=== PATIENT | female | born 1990 | race Two or more races ===

== ENCOUNTER 2016-07-03 03:48 | Emergency (ER) | payer MEDICAID ==
[~2016-07-03] VITALS: Ht 162.6 cm; Wt 65.3 kg
[~2016-07-03 03:48] MED LIST: CEPH-37 PO; PREN-96 PO
[2016-07-03 04:47] LABS: Basophils # (auto) 0 uL; Basophils % (auto) 0.3 % (0.0-2.0); Eosinophils # (auto) 0.1 uL; Hematocrit 40.6 % (36.0-46.0); Hemoglobin 13.4 g/dL (12.2-16.2); Lymphocytes % (auto) 20.3 % (10.0-50.0); Mean Corpuscular Hemoglobin 28.9 pg (28.0-32.0); Mean Corpuscular Volume 87.6 fL (80.0-100.0); Mean Platelet Volume 8.3 fL (7.4-10.4); Monocytes # (auto) 0.7 uL; Monocytes % (auto) 6.8 % (0.0-12.0); Neutrophils # (auto) 7.2 uL; Neutrophils % (auto) 71.6 % (37.0-80.0); Platelet Count (auto) 264 10^3/uL (140-450); Red Cell Distribution Width 12.9 % (11.6-16.0)
[2016-07-03 05:12] LABS: Albumin 4.2 g/dL (3.4-5.0); Calcium 8.6 mg/dL (8.5-10.1)
[2016-07-03 05:15] LABS: BUN/Creatinine Ratio 19.4
[2016-07-03 05:17] LABS: Bilirubin, Total 0.2 mg/dL (0.2-1.0); Total Protein 7.8 g/dL (6.4-8.2)
[2016-07-03 07:45] VITALS: BP 108/75
== END 2016-07-03 08:52 | disposition home or self-care (01) ==
LOC: ER 03:53
DX: N39.0 Urinary tract infection, site not specified (principal); H92.01 Otalgia, right ear
CPT/HCPCS: 36415; 80053; 85025

== ENCOUNTER 2016-09-24 13:06 | Emergency (ER) | payer MEDICAID ==
[2016-09-24 13:11] VITALS: BP 122/68
[2016-09-24 14:09] LABS: Basophils # (auto) 0 uL; Basophils % (auto) 0.5 % (0.0-2.0); Eosinophils # (auto) 0.1 uL; Eosinophils % (auto) 0.9 % (0.0-7.0); Hematocrit 40.2 % (36.0-46.0); Hemoglobin 13.2 g/dL (12.2-16.2); Lymphocytes # (auto) 1.9 uL; Mean Corpuscular Hemoglobin 28.4 pg (28.0-32.0); Mean Corpuscular Hgb Conc. 32.9 g/dL (32.0-36.0); Mean Corpuscular Volume 86.3 fL (80.0-100.0); Mean Platelet Volume 8.4 fL (7.4-10.4); Monocytes # (auto) 0.4 uL; Monocytes % (auto) 5.8 % (0.0-12.0); Neutrophils # (auto) 4.4 uL; Neutrophils % (auto) 64.8 % (37.0-80.0); Platelet Count (auto) 243 10^3/uL (140-450); Red Cell Distribution Width 13.3 % (11.6-16.0); White Blood Cell 6.8 10^3/uL (4.4-10.8)
[2016-09-24 14:35] LABS: BUN/Creatinine Ratio 14.8; Bilirubin, Total 0.4 mg/dL (0.2-1.0); Calcium 8.7 mg/dL (8.5-10.1); Total Protein 7.2 g/dL (6.4-8.2)
== END 2016-09-24 15:38 | disposition left against medical advice (07) ==
LOC: ER 13:06
DX: R10.30 Lower abdominal pain, unspecified (principal); Z53.21 Procedure and treatment not carried out due to patient leaving prior to being seen by health care provider
CPT/HCPCS: 36415; 74000; 80053; 84702; 85025

== ENCOUNTER 2016-12-08 00:49 | Emergency (ER) | payer MEDICAID ==
[~2016-12-08] VITALS: Ht 154.9 cm; Wt 67.6 kg
[2016-12-08 01:06] VITALS: BP 126/69
[2016-12-08] MEDS ORDERED: diphenhdrAMINE HCL 50 MG/1 ML VL IM ONE (03:15)
[2016-12-08] MEDS ORDERED: methylPREDNISolone SOD SUCC 125 MG/2 ML VL IM ONE (03:15)
== END 2016-12-08 03:37 | disposition home or self-care (01) ==
LOC: ER 00:49
DX: T78.40XA Allergy, unspecified, initial encounter (principal)
CPT/HCPCS: 81025

== ENCOUNTER 2017-04-22 05:38 | Emergency (ER) | payer MEDICAID ==
[~2017-04-22] VITALS: Ht 154.9 cm; Wt 65.8 kg
[2017-04-22 06:36] LABS: Urine Bilirubin Negative (Negative); Urine Blood 2+ /uL (Negative); Urine Ca Oxalate Crystal FEW (None Seen); Urine Color Yellow (Yellow); Urine Glucose Normal (Normal); Urine Ketone Negative (Negative); Urine Mucus FEW (None Seen); Urine Nitrite Negative (Negative); Urine RBC 6 /hpf (0 - 4); Urine Squamous Epithelial Cell FEW /hpf (<5); Urine Urobilinogen Normal (Negative); Urine pH 5.5 (5.0-8.0)
[2017-04-22 09:44] LABS: Basophils # (auto) 0 uL; Basophils % (auto) 0.7 % (0.0-2.0); Eosinophils # (auto) 0.2 uL; Eosinophils % (auto) 2.4 % (0.0-7.0); Hematocrit 41.9 % (36.0-46.0); Hemoglobin 13.9 g/dL (12.2-16.2); Lymphocytes # (auto) 1.8 uL; Lymphocytes % (auto) 28.3 % (10.0-50.0); Mean Corpuscular Hemoglobin 29.4 pg (28.0-32.0); Mean Corpuscular Hgb Conc. 33.3 g/dL (32.0-36.0); Mean Corpuscular Volume 88.4 fL (80.0-100.0); Mean Platelet Volume 8.3 fL (6.9-10.8); Monocytes # (auto) 0.5 uL; Monocytes % (auto) 7.3 % (0.0-12.0); Neutrophils # (auto) 3.9 uL; Neutrophils % (auto) 61.3 % (37.0-80.0); Platelet Count (auto) 209 10^3/uL (140-450); Red Cell Distribution Width 13.2 % (11.8-14.3); White Blood Cell 6.4 10^3/uL (4.4-10.8)
[2017-04-22 10:09] LABS: BUN/Creatinine Ratio 17.5; Calcium 8.9 mg/dL (8.5-10.1); Potassium 3.7 mmol/L (3.5-5.1)
[2017-04-22 10:21] LABS: INR 0.94 (0.9-1.15); Prothrombin Time 10.2 sec (9.37-12.3)
[2017-04-22] MEDS ORDERED: cefTRIAXone 1GM/50ML D5W 50 ML IV ONE (11:00)
[2017-04-22 11:16] VITALS: BP 117/66
== END 2017-04-22 11:23 | disposition home or self-care (01) ==
LOC: ER 05:38
DX: N39.0 Urinary tract infection, site not specified (principal)
CPT/HCPCS: 36415; 80048; 81001; 81025; 84702; 85025; 85610; 85730

== ENCOUNTER 2017-09-26 08:28 | Emergency (ER) | payer MEDICAID ==
[~2017-09-26] VITALS: Ht 154.9 cm; Wt 65.8 kg
[2017-09-26 09:47] LABS: Basophils # (auto) 0 uL; Basophils % (auto) 0.4 % (0.0-2.0); Eosinophils # (auto) 0 uL; Eosinophils % (auto) 0.5 % (0.0-7.0); Hematocrit 39.9 % (36.0-46.0); Hemoglobin 13.2 g/dL (12.2-16.2); Lymphocytes # (auto) 1.6 uL; Mean Corpuscular Hemoglobin 29.4 pg (28.0-32.0); Mean Corpuscular Volume 89.1 fL (80.0-100.0); Monocytes # (auto) 0.5 uL; Monocytes % (auto) 8.1 % (0.0-12.0); Neutrophils # (auto) 4.3 uL; Platelet Count (auto) 223 10^3/uL (140-450); Red Blood Cells 4.48 10^6/uL (4.0-5.20); Red Cell Distribution Width 13.3 % (11.8-14.3); White Blood Cell 6.5 10^3/uL (4.4-10.8)
[2017-09-26 09:57] LABS: Urine Bacteria FEW /hpf (None Seen); Urine Blood 1+ /uL (Negative); Urine Mucus FEW (None Seen); Urine Specific Gravity 1.028 (1.001-1.035); Urine WBC 2 /hpf (0 - 5)
[2017-09-26 10:10] LABS: Albumin 3.9 g/dL (3.4-5.0); BUN/Creatinine Ratio 15.9; Bilirubin, Total 0.5 mg/dL (0.2-1.0); Calcium 8.2 mg/dL (8.5-10.1); Potassium 3.8 mmol/L (3.5-5.1); Total Protein 7.2 g/dL (6.4-8.2)
[2017-09-26 10:57] VITALS: BP 105/50
[2017-09-26] MEDS ORDERED: NITROFURANTOIN (MONO) 100 mg CAP PO ONE (11:45)
[2017-09-26] MEDS ORDERED: HYDROcodone-ACET 10/325MG TAB PO ONE (11:45)
== END 2017-09-26 13:08 | disposition home or self-care (01) ==
LOC: ER 08:33
DX: N39.0 Urinary tract infection, site not specified (principal); N83.209 Unspecified ovarian cyst, unspecified side
CPT/HCPCS: 36415; 80053; 81001; 81025; 85025

== ENCOUNTER 2018-01-26 16:14 | Emergency (ER) | payer MEDICAID ==
[~2018-01-26] VITALS: Ht 154.9 cm; Wt 68.0 kg
[2018-01-26 16:57] LABS: Urine Bacteria NONE SEEN /hpf (None Seen); Urine Blood 1+ /uL (Negative); Urine Specific Gravity 1.021 (1.001-1.035); Urine WBC 13 /hpf (0 - 5)
[2018-01-26 17:19] LABS: Basophils # (auto) 0.1 uL; Basophils % (auto) 0.8 % (0.0-2.0); Eosinophils # (auto) 0.1 uL; Eosinophils % (auto) 0.8 % (0.0-7.0); Hematocrit 38.5 % (36.0-46.0); Hemoglobin 13.4 g/dL (12.2-16.2); Lymphocytes # (auto) 1.7 uL; Lymphocytes % (auto) 20.7 % (10.0-50.0); Mean Corpuscular Hemoglobin 30.6 pg (28.0-32.0); Mean Corpuscular Hgb Conc. 34.9 g/dL (32.0-36.0); Mean Corpuscular Volume 87.7 fL (80.0-100.0); Monocytes # (auto) 0.6 uL; Monocytes % (auto) 7.8 % (0.0-12.0); Neutrophils # (auto) 5.6 uL; Neutrophils % (auto) 69.9 % (37.0-80.0); Nucleated Red Blood Cells % 0.1 %; Platelet Count (auto) 212 10^3/uL (140-450); Red Blood Cells 4.38 10^6/uL (4.0-5.20)
[2018-01-26 17:31] LABS: Calcium 8.7 mg/dL (8.5-10.1); Potassium 3.7 mmol/L (3.5-5.1)
[2018-01-26 17:33] LABS: BUN/Creatinine Ratio 14.9
[2018-01-26 17:36] LABS: Bilirubin, Total 0.4 mg/dL (0.2-1.0); Total Protein 7.3 g/dL (6.4-8.2)
[2018-01-26 18:50] VITALS: BP 120/48
== END 2018-01-26 18:52 | disposition home or self-care (01) ==
LOC: ER 16:14
DX: O23.41 Unspecified infection of urinary tract in pregnancy, first trimester (principal); Z3A.01 Less than 8 weeks gestation of pregnancy
CPT/HCPCS: 36415; 80053; 81001; 84702; 85025

== ENCOUNTER 2018-01-29 15:45 | Emergency (ER) | payer MEDICAID ==
[~2018-01-29] VITALS: Ht 154.9 cm; Wt 66.2 kg
[2018-01-29 16:07] VITALS: BP 118/64
== END 2018-01-29 17:33 | disposition home or self-care (01) ==
LOC: ER 15:49
DX: O26.891 Other specified pregnancy related conditions, first trimester (principal); R10.2 Pelvic and perineal pain; Z3A.01 Less than 8 weeks gestation of pregnancy
CPT/HCPCS: 36415; 84702

== ENCOUNTER 2018-02-07 21:45 | Emergency (ER) | payer MEDICAID ==
[~2018-02-07] VITALS: Ht 154.9 cm; Wt 66.7 kg
[2018-02-07 22:32] LABS: Basophils # (auto) 0.1 uL; Basophils % (auto) 0.7 % (0.0-2.0); Eosinophils # (auto) 0.1 uL; Eosinophils % (auto) 1.3 % (0.0-7.0); Hematocrit 38.4 % (36.0-46.0); Lymphocytes # (auto) 2.2 uL; Lymphocytes % (auto) 25.2 % (10.0-50.0); Mean Corpuscular Hgb Conc. 33.9 g/dL (32.0-36.0); Mean Corpuscular Volume 88.7 fL (80.0-100.0); Monocytes # (auto) 0.6 uL; Monocytes % (auto) 6.4 % (0.0-12.0); Neutrophils # (auto) 5.8 uL; Neutrophils % (auto) 66.4 % (37.0-80.0); Platelet Count (auto) 214 10^3/uL (140-450); Red Blood Cells 4.33 10^6/uL (4.0-5.20); Red Cell Distribution Width 13.8 % (11.8-14.3); White Blood Cell 8.7 10^3/uL (4.4-10.8)
[2018-02-07 22:36] LABS: Urine Bacteria FEW /hpf (None Seen); Urine Blood TRACE /uL (Negative); Urine Specific Gravity 1.009 (1.001-1.035); Urine WBC <1 /hpf (0 - 5)
[2018-02-07 22:44] LABS: Albumin 3.8 g/dL (3.4-5.0); BUN/Creatinine Ratio 13.4; Calcium 8.6 mg/dL (8.5-10.1); Potassium 3.6 mmol/L (3.5-5.1)
[2018-02-07 22:47] LABS: Bilirubin, Total 0.3 mg/dL (0.2-1.0); Total Protein 7.1 g/dL (6.4-8.2)
[2018-02-07 22:53] LABS: INR 0.95 (0.9-1.15); Partial Thromboplastin Time 27.7 sec (23.78-33.04); Prothrombin Time 10.2 sec (9.27-12.13)
[2018-02-08] MEDS ORDERED: cefTRIAXone 1GM/10ml IVPUSH 10 ML IV ONE (04:00)
[2018-02-08] MEDS ORDERED: AZITHROMYCIN 500MG/ 250ML 250 ML IV ONE (04:00)
[2018-02-08 05:01] VITALS: BP 108/67
== END 2018-02-08 06:14 | disposition home or self-care (01) ==
LOC: ER 21:45
DX: O20.9 Hemorrhage in early pregnancy, unspecified (principal); Z3A.01 Less than 8 weeks gestation of pregnancy
CPT/HCPCS: 36415; 76801; 76817; 80053; 81001; 84702; 85025; 85610; 85730

== ENCOUNTER 2018-10-06 17:40 | Observation (INO) | payer MEDICAID ==
[~2018-10-06] VITALS: Ht 154.9 cm; Wt 79.4 kg
[2018-10-06] MEDS ORDERED: PENICILLIN G POT 5MIL/D5 50ML 50 ML IV ONE (23:53)
== END 2018-10-06 18:53 | disposition home or self-care (01) | DRG 566 ==
LOC: LDRP 17:40
PROVIDERS: ADMIT Specialist; ATTEND Specialist
DX: O26.893 Other specified pregnancy related conditions, third trimester (principal); R10.9 Unspecified abdominal pain; Z3A.39 39 weeks gestation of pregnancy
CPT/HCPCS: 59025; 81002; G0378; J2540

== ENCOUNTER 2018-10-08 02:16 | Inpatient (IN) | payer MEDICAID | END 2018-10-09 14:40 | disposition home or self-care (01) | LOC: LDRP 02:16 | DX: O80 Encounter for full-term uncomplicated delivery (principal); Z3A.39 39 weeks gestation of pregnancy ==

== ENCOUNTER 2018-10-10 08:11 | Emergency (ER) | payer MEDICAID ==
[~2018-10-10] VITALS: Ht 154.9 cm; Wt 75.4 kg
[2018-10-10 08:15] VITALS: BP 108/87
[2018-10-10] MEDS ORDERED: ACETAMINOPHEN 325 MG TAB PO ONE (13:15)
== END 2018-10-10 15:15 | disposition home or self-care (01) ==
LOC: ER 08:11
DX: S00.83XA Contusion of other part of head, initial encounter (principal); M54.5 Low back pain; M62.830 Muscle spasm of back; V89.2XXA Person injured in unspecified motor-vehicle accident, traffic, initial encounter; Y93.89 Activity, other specified; Y92.89 Other specified places as the place of occurrence of the external cause; Y99.8 Other external cause status
CPT/HCPCS: 70450; 72125

== ENCOUNTER 2019-02-28 12:36 | Emergency (ER) | payer MEDICAID ==
[~2019-02-28] VITALS: Ht 154.9 cm; Wt 62.6 kg
[2019-02-28] MEDS ORDERED: SODIUM CHLORIDE 0.9% 1,000 ML IV ONE (12:47)
[2019-02-28 13:14] LABS: Basophils # (auto) 0 uL; Basophils % (auto) 0.9 % (0.0-2.0); Eosinophils # (auto) 0.1 uL; Eosinophils % (auto) 1.6 % (0.0-7.0); Hematocrit 40.9 % (36.0-46.0); Hemoglobin 13.7 g/dL (12.2-16.2); Lymphocytes # (auto) 1.5 uL; Lymphocytes % (auto) 29.5 % (10.0-50.0); Mean Corpuscular Hemoglobin 29.9 pg (28.0-32.0); Mean Corpuscular Hgb Conc. 33.5 g/dL (32.0-36.0); Mean Corpuscular Volume 89.2 fL (80.0-100.0); Monocytes # (auto) 0.3 uL; Monocytes % (auto) 6.6 % (0.0-12.0); Neutrophils # (auto) 3.1 uL; Neutrophils % (auto) 61.4 % (37.0-80.0); Nucleated Red Blood Cells % 0.1 %; Platelet Count (auto) 200 10^3/uL (140-450); Red Blood Cells 4.58 10^6/uL (4.0-5.20); Red Cell Distribution Width 12.9 % (11.8-14.3); White Blood Cell 5.1 10^3/uL (4.4-10.8)
[2019-02-28 13:25] LABS: INR 0.97 (0.9-1.15); Partial Thromboplastin Time 27.2 sec (23.64-32.05)
[2019-02-28 13:32] LABS: Anion Gap 6 (5-15); Calcium 8.7 mg/dL (8.5-10.1); Carbon Dioxide 25 mmol/L (21-32); Chloride 111 mmol/L (98-107); Lipase 107 U/L (73-393); Potassium 3.9 mmol/L (3.5-5.1); Sodium 142 mmol/L (136-145)
[2019-02-28 13:40] LABS: Alanine Aminotransferase 27 U/L (13-56); Alkaline Phosphatase 74 U/L (45-117); Aspartate Aminotransferase 40 U/L (15-37); BUN/Creatinine Ratio 14.7; Bilirubin, Total 0.7 mg/dL (0.2-1.0); Blood Urea Nitrogen 10 mg/dL (7-18); GFR African American 135 mL/min; GFR Non-African American 111 mL/min; Glucose 102 mg/dL (74-106); Total Protein 7.2 g/dL (6.4-8.2)
[2019-02-28] MEDS ORDERED: ACETAMINOPHEN 500 MG TAB PO ONE (15:15)
[2019-02-28] MEDS ORDERED: MORPHINE SULFATE 4 MG/ML SYR/VIAL IV ONE (16:00)
[2019-02-28] MEDS ORDERED: ONDANSETRON HCL 4 MG/2 ML VIAL IV ONE (16:00)
[2019-02-28 17:36] VITALS: BP 110/64
== END 2019-02-28 18:18 | disposition home or self-care (01) ==
LOC: EDBD 12:36 → ER 12:36
DX: K80.20 Calculus of gallbladder without cholecystitis without obstruction (principal)
CPT/HCPCS: 36415; 76705; 80053; 83690; 84484; 85025; 85610; 85730; 96374; 96375; 99284; J2270; J2405; J7030

== ENCOUNTER 2019-03-01 13:10 | Inpatient (IN) | payer MEDICAID ==
[~2019-03-01] VITALS: Ht 154.9 cm; Wt 63.5 kg
[2019-03-01] MEDS ORDERED: SODIUM CHLORIDE 0.9% 500 ML IVB ONE (16:00)
[2019-03-01] MEDS ORDERED: MORPHINE SULFATE 4 MG/ML SYR/VIAL IV ONE (16:00)
[2019-03-01] MEDS ORDERED: ONDANSETRON HCL 4 MG/2 ML VIAL IV ONE (16:00)
[2019-03-01 16:19] LABS: Basophils # (auto) 0.1 uL; Basophils % (auto) 1.1 % (0.0-2.0); Eosinophils # (auto) 0.1 uL; Hematocrit 40.9 % (36.0-46.0); Hemoglobin 13.9 g/dL (12.2-16.2); Lymphocytes # (auto) 1.4 uL; Lymphocytes % (auto) 25.9 % (10.0-50.0); Mean Corpuscular Hemoglobin 30.5 pg (28.0-32.0); Mean Corpuscular Hgb Conc. 33.9 g/dL (32.0-36.0); Mean Corpuscular Volume 89.9 fL (80.0-100.0); Monocytes # (auto) 0.4 uL; Monocytes % (auto) 7.8 % (0.0-12.0); Neutrophils # (auto) 3.4 uL; Neutrophils % (auto) 64.2 % (37.0-80.0); Nucleated Red Blood Cells % 0.1 %; Platelet Count (auto) 198 10^3/uL (140-450); Red Blood Cells 4.55 10^6/uL (4.0-5.20); Red Cell Distribution Width 13.2 % (11.8-14.3); White Blood Cell 5.4 10^3/uL (4.4-10.8)
[2019-03-01 16:33] LABS: Albumin 4.4 g/dL (3.4-5.0); Calcium 9.6 mg/dL (8.5-10.1); Potassium 3.8 mmol/L (3.5-5.1)
[2019-03-01 16:36] LABS: Total Protein 7.6 g/dL (6.4-8.2)
[2019-03-01] MEDS ORDERED: MORPHINE SULF INJ 2 MG/ML SYRINGE 1ML IV PRN (17:00)
[2019-03-01] MEDS: SOD CHL 0.45% WITH 20MEQ KCL 1,000 ML IV SCH (19:06)
[2019-03-01] MEDS: LEVOFLOXACIN 500MG 100 ML IV SCH (19:06)
--- NOTE | 2019-03-01 20:15 | NUR ---
open note assumed care of pt, upon entering room pt sitting up awake, alert and oriented x4. pt has family including at bedside. pt on room air no distress noted or expressed. pt and family updated on plan of care. all questions answered. pt bed locked, low and 2x rails up. call light in reach, this nurse encouraged pt to call as needed. will round q1hr and prn.
[2019-03-01 22:00] VITALS: BP 111/58
[2019-03-01] MEDS: metroNIDAZOLE 500MG/100ML 100 ML IV SCH (22:32)
[2019-03-02] MEDS: ONDANSETRON HCL 4 MG/2 ML VIAL IV PRN (01:00)
--- NOTE | 2019-03-02 01:00 | NUR ---
pt co nausea and tingling in extremities. upon assessment pt was diaphoretic, skin was clammy. pt was alert and oriented x4 throughout. pt vitals taken, and stable. BG checked and revealed 64. pt given (2) apple juice, and (1) jello.. pt was also given PRN zofran per MD and order and in accordance with MAR. pt reported relief after interventions performed. pt revealed that "all i had to eat today was a smoothie in the morning". BG recheck after 30min showed BG of 112. pt stable at this time. call light in reach, bed linens changed. will round on pt q1hr prn.
[2019-03-02] MEDS: SOD CHL 0.45% WITH 20MEQ KCL 1,000 ML IV SCH (03:08)
[2019-03-02] MEDS ORDERED: PROMETHAZINE HCL 25 MG/ML 1ML IV ONE (03:15)
[2019-03-02 05:48] VITALS: BP 104/56
[2019-03-02 06:15] LABS: Basophils # (auto) 0 uL; Basophils % (auto) 0.4 % (0.0-2.0); Eosinophils # (auto) 0 uL; Eosinophils % (auto) 0.2 % (0.0-7.0); Hematocrit 40.8 % (36.0-46.0); Hemoglobin 13.6 g/dL (12.2-16.2); Lymphocytes # (auto) 0.6 uL; Lymphocytes % (auto) 8.8 % (10.0-50.0); Mean Corpuscular Hemoglobin 30.1 pg (28.0-32.0); Mean Corpuscular Hgb Conc. 33.3 g/dL (32.0-36.0); Mean Corpuscular Volume 90.6 fL (80.0-100.0); Monocytes # (auto) 0.2 uL; Monocytes % (auto) 3.1 % (0.0-12.0); Neutrophils % (auto) 87.5 % (37.0-80.0); Platelet Count (auto) 185 10^3/uL (140-450); Red Cell Distribution Width 12.8 % (11.8-14.3); White Blood Cell 6.9 10^3/uL (4.4-10.8)
[2019-03-02] MEDS: metroNIDAZOLE 500MG/100ML 100 ML IV SCH ×3 (06:30→21:52)
[2019-03-02 06:39] LABS: INR 1.01 (0.9-1.15); Partial Thromboplastin Time 25.6 sec (23.64-32.05)
[2019-03-02 06:42] LABS: Potassium 4.1 mmol/L (3.5-5.1)
[2019-03-02 06:47] LABS: BUN/Creatinine Ratio 13.9; Calcium 8.6 mg/dL (8.5-10.1)
[2019-03-02 06:57] LABS: Bilirubin, Total 1.2 mg/dL (0.2-1.0)
--- NOTE | 2019-03-02 07:45 | NUR ---
Opening Shift Note Assumed care of patient, awake, alert and oriented x4 . No S/S of distress/SOB or pain. Patient denies nausea. Instructed on POC and to call for assist PRN. Bed at lowest locked position, side rails up x2 and call light within reach. will continue to monitor for changes Q1hr and PRN.
[2019-03-02 08:00] VITALS: BP 99/44
[2019-03-02 09:00] VITALS: BP 99/44
[2019-03-02] MEDS: LEVOFLOXACIN 500MG 100 ML IV SCH (10:19)
--- NOTE | 2019-03-02 11:04 | NUR ---
Provided patient with Breast pump from Labor and delivery.
[2019-03-02 13:00] VITALS: BP 110/66
--- NOTE | 2019-03-02 13:53 | NUR ---
Spoke to Xochitl in the OR department, notified her that patient has agreed to have the surgery. Xochitl will notify Dr. Loyda MD is currently in a procedure.
[2019-03-02 17:00] VITALS: BP 105/65
[2019-03-02] MEDS: SODIUM CHLORIDE 0.9% 1,000 ML IV SCH ×2 (17:50→18:15)
--- NOTE | 2019-03-02 19:08 | NUR ---
Closing Note Report given to Julio RN, patient is comfortably resting in bed. Bed at lowest locked position and call light within reach. No s/s of distress/SOB noted/stated.
[2019-03-02 22:00] VITALS: BP 107/67
--- NOTE | 2019-03-02 23:30 | NUR ---
Patient began to feel shaky, cool and diaphoretic along with some cramping and numbness. Checked the patients blood glucose with results of 48 and 45. Paged the hospitalist and promptly received a call back and received and order to change the fluids from NS to D5NS. Rechecked Blood glucose with result of 92.
[2019-03-03] MEDS: ONDANSETRON HCL 4 MG/2 ML VIAL IV PRN ×2 (00:05→10:08)
[2019-03-03] MEDS: D5W/SOD CHLO 0.9% 1,000 ML IV SCH ×2 (01:26→13:30)
--- NOTE | 2019-03-03 01:57 | NUR ---
Hospitalist gold Pt is still very nauseous from hypoglycemic episode. Zofran was administered however the patient stated that it gave very little relief. She received Phenergan 12.5MG IV X1 the previous night and stated it worked a lot better and would prefer that.
[2019-03-03] MEDS ORDERED: PROMETHAZINE HCL 25 MG/ML 1ML IV ONE (03:00)
[2019-03-03 05:00] VITALS: BP 106/63
[2019-03-03] MEDS: metroNIDAZOLE 500MG/100ML 100 ML IV SCH ×3 (05:15→21:16)
[2019-03-03 06:46] LABS: Potassium 3.9 mmol/L (3.5-5.1)
[2019-03-03 06:56] LABS: Basophils # (auto) 0 uL; Basophils % (auto) 0.7 % (0.0-2.0); Eosinophils # (auto) 0 uL; Eosinophils % (auto) 0.6 % (0.0-7.0); Hematocrit 39.5 % (36.0-46.0); Hemoglobin 13.4 g/dL (12.2-16.2); Lymphocytes # (auto) 1.1 uL; Mean Corpuscular Hemoglobin 30.4 pg (28.0-32.0); Mean Corpuscular Hgb Conc. 33.8 g/dL (32.0-36.0); Mean Corpuscular Volume 89.8 fL (80.0-100.0); Monocytes # (auto) 0.3 uL; Monocytes % (auto) 6.7 % (0.0-12.0); Neutrophils # (auto) 3.4 uL; Nucleated Red Blood Cells % 0.1 %; Platelet Count (auto) 192 10^3/uL (140-450); Red Cell Distribution Width 12.7 % (11.8-14.3)
[2019-03-03 06:59] LABS: Albumin 3.6 g/dL (3.4-5.0); BUN/Creatinine Ratio 13.5; Bilirubin, Total 0.9 mg/dL (0.2-1.0); Calcium 8.2 mg/dL (8.5-10.1); Magnesium 2.1 mg/dL (1.6-2.6); Total Protein 6.6 g/dL (6.4-8.2)
[2019-03-03] MEDS ORDERED: DOXAPRAM HCL 20 MG/ML 20ML VIAL INJ IV ONE (07:04)
[2019-03-03] MEDS ORDERED: ceFAZolin 1GM/50ML 50 ML IV ONE (07:04)
[2019-03-03] MEDS ORDERED: SUCCINYLCHOLINE CHLORIDE 20 MG/ML 10ML VIAL IV ONE (07:05)
[2019-03-03 07:06] LABS: Urine Bacteria FEW /hpf (None Seen); Urine Blood Negative /uL (Negative); Urine Mucus FEW (None Seen); Urine Specific Gravity 1.024 (1.001-1.035); Urine WBC 17 /hpf (0 - 5)
[2019-03-03] MEDS ORDERED: ONDANSETRON HCL 4 MG/2 ML VIAL ONE (07:11)
[2019-03-03] MEDS ORDERED: fentaNYL CITRATE 100 MCG/2 ML VL ONE (07:11)
[2019-03-03] MEDS ORDERED: MIDAZOLAM HCL 1MG/1ML-2 ML VIAL ONE (07:11)
[2019-03-03] MEDS ORDERED: SODIUM CHLORIDE LOCK 10 ML ONE (07:11)
[2019-03-03] MEDS ORDERED: MEPERIDINE HCL (25 MG/ML) 1ML VIAL ONE (07:11)
[2019-03-03] MEDS ORDERED: ROCURONIUM 10MG/ML 10ML VIAL IV ONE (07:11)
[2019-03-03] MEDS ORDERED: PROPOFOL 10 MG/ML 20 ML IV ONE (07:12)
[2019-03-03] MEDS ORDERED: POVIDONE IODINE 5% TOPICAL CREAM TOP ONE (07:18)
--- NOTE | 2019-03-03 07:35 | NUR ---
Opening shift Per NOC RN, patient is down at OR department for procedure.
[2019-03-03 08:00] VITALS: BP 110/55
[2019-03-03] MEDS ORDERED: GLYCOPYRROLATE 0.2 MG/ML 1ML VIAL ONE (08:08)
[2019-03-03] MEDS ORDERED: NEOSTIGMINE 1 MG/ML INJ (10mg/10ML VIAL) ONE (08:08)
[2019-03-03] MEDS ORDERED: fentaNYL CITRATE 100 MCG/2 ML VL IV PRN (08:15)
[2019-03-03] MEDS ORDERED: ONDANSETRON HCL 4 MG/2 ML VIAL IV PRN (08:15)
[2019-03-03] MEDS ORDERED: KETOROLAC TROMETH 30 MG/ML 1ML VIAL IV ONE ×2 (08:15→17:45)
[2019-03-03] MEDS: HYDROmorphone HCL 2 MG/ML VL IV PRN ×2 (08:55→09:05)
[2019-03-03] MEDS: LEVOFLOXACIN 500MG 100 ML IV SCH (10:04)
[2019-03-03] MEDS ORDERED: ACETAMINOPHEN 325 MG TAB PO PRN (11:15)
--- NOTE | 2019-03-03 12:15 | NUR ---
IS at bed side per MD orders. Educated patient on use of Incentive spirometry. Patient verbalized understanding and demonstrated use of IS.
[2019-03-03 13:00] VITALS: BP 108/69
--- NOTE | 2019-03-03 13:05 | NUR ---
Code Assist Patient called me to the room, Patient is alert and oriented x4 pt appears to look pale . c/o feeling warm, weak, dizzy, and seeing stars, immediately took her vitals BP 68/32, HR 60, T 98.4, RR 14, BS 154. Immediately positioned her bed to Trendelenburg position and paged for a code assist. Continued to check for vitals Blood pressures are as follows : 77/46, 84/46, 91/57 . Patient received a 500ml bolus of NS, Patients bp is being monitored [id number], patient states she is feeling better. Last BP was 93/64, HR 101, RR 16. Paged . Addendum: 03/03/19 at 1326 by Padmini Bermudez RN Dr. Kayleen rodriguez. Orders for 3L bolus NS at 150mls/hr. Orders read back and verified. Addendum: 03/03/19 at 1447 by Padmini Bermudez RN DURING CODE ASSIST [employer] AND [employer] NURSE WERE AT BEDSIDE.
[2019-03-03] MEDS ORDERED: SODIUM CHLORIDE 0.9% 3,000 ML IV ONE (14:00)
[2019-03-03] MEDS: SODIUM CHLORIDE 0.9% 1,000 ML IV SCH ×2 (14:15→21:15)
[2019-03-03 17:00] VITALS: BP 92/63
[2019-03-03] MEDS ORDERED: HYDROcodone-ACET 5/325MG TAB PO PRN (17:00)
[2019-03-03] MEDS ORDERED: traMADol HCL 50 MG TAB PO PRN (17:45)
[2019-03-03] MEDS ORDERED: ACETAMINOPHEN 500 MG TAB PO PRN (18:00)
--- NOTE | 2019-03-03 19:42 | NUR ---
closing note Patient resting in bed comfortably in bed. Bed at lowest locked position and call light within reach. Care endorsed to JOY Kim.
[2019-03-03] MEDS: traMADol HCL 50 MG TAB PO PRN (22:27)
[2019-03-03 23:37] VITALS: BP 104/70
[2019-03-04] MEDS: D5W/SOD CHLO 0.9% 1,000 ML IV SCH (02:00)
[2019-03-04] MEDS: SODIUM CHLORIDE 0.9% 1,000 ML IV SCH (02:53)
[2019-03-04 05:00] VITALS: BP 104/62
[2019-03-04] MEDS: metroNIDAZOLE 500MG/100ML 100 ML IV SCH (05:47)
[2019-03-04] MEDS: traMADol HCL 50 MG TAB PO PRN (06:35)
--- NOTE | 2019-03-04 07:27 | NUR ---
Opening Shift Note Assumed care of patient, awake, alert and oriented x4 . No S/S of distress/SOB . Patient c/o pain rates it 8/10. Patient denies nausea. Will medicate as prescribed by MD. Abdominal incision dressings (x3), are CDI. Instructed on POC and to call for assist PRN. Bed at lowest locked position, side rails up x2 and call light within reach. Will continue to monitor for changes Q1hr and PRN.
[2019-03-04 08:00] VITALS: BP 93/51
[2019-03-04] MEDS: LEVOFLOXACIN 500MG 100 ML IV SCH (08:05)
[2019-03-04 08:12] VITALS: BP 93/51
[2019-03-04] MEDS ORDERED: TRAM50TA2 PO (11:12)
[2019-03-04] MEDS ORDERED: CIPR-173 PO (11:15)
[2019-03-04] MEDS ORDERED: METR500T PO (11:16)
[2019-03-04] MEDS ORDERED: ACET500T42 PO (11:16)
[2019-03-04 13:00] VITALS: BP 111/76
[2019-03-04] MEDS: ONDANSETRON HCL 4 MG/2 ML VIAL IV PRN (16:13)
--- NOTE | 2019-03-04 16:38 | NUR ---
Discharge instructions given as ordered. Encourage to follow up with PMD as instructed. All questions and concerns addressed. Patient verbalized understanding. IV removed with catheter intact, pressure dressing applied. Patient taken to vehicle via wheelchair with all personal belongings, accompanied by staff and family member. No distress noted at time of departure.
== END 2019-03-04 16:38 | disposition home or self-care (01) | DRG 263 ==
LOC: ER 13:10 → OVERFLOW 13:11 → WEST WING 17:44
PROVIDERS: ADMIT Nurse Practitioner Acute Care; ATTEND Internal Medicine Nephrology
PROC: 0FT44ZZ Resection of Gallbladder, Percutaneous Endoscopic Approach (ICD-10-PCS; principal; 2019-03-03 07:13)
DX: K80.00 Calculus of gallbladder with acute cholecystitis without obstruction (principal); R79.89 Other specified abnormal findings of blood chemistry
CPT/HCPCS: 36415; 74181; 80053; 81001; 81025; 82247; 82962; 83036; 83690; 83735; 84702; 85025; 85610; 85730; 86850; 86900; 86901; G0378; J0330; J0690; J1885; J1956; J2250; J2405; J2704; J3490; J7042

== ENCOUNTER 2019-07-31 22:48 | Emergency (ER) | payer MEDICAID ==
[~2019-07-31] VITALS: Ht 154.9 cm; Wt 63.5 kg
[~2019-07-31 22:48] MED LIST changes: +ACET500T48 PO; -CEPH-37 PO; +CIPR-173 PO; +METR500T PO; -PREN-96 PO; +TRAM50TA2 PO
[2019-07-31 23:39] LABS: Urine Bacteria FEW /hpf (None Seen); Urine Blood 1+ /uL (Negative); Urine WBC 2 /hpf (0 - 5)
[2019-08-01 00:29] VITALS: BP 99/59
== END 2019-08-01 01:07 | disposition home or self-care (01) ==
LOC: ER 22:48
DX: N39.0 Urinary tract infection, site not specified (principal); N76.0 Acute vaginitis; B96.89 Other specified bacterial agents as the cause of diseases classified elsewhere; Z32.02 Encounter for pregnancy test, result negative
CPT/HCPCS: 81001; 81025

== ENCOUNTER → 2019-11-30 | Emergency (ER) | payer MEDICAID ==
[~2019-11-30] VITALS: Ht 154.9 cm; Wt 67.6 kg
[2019-11-30 22:40] VITALS: BP 111/60
== END | disposition home or self-care (01) ==
LOC: ER 22:17
DX: S80.862A Insect bite (nonvenomous), left lower leg, initial encounter (principal); S80.861A Insect bite (nonvenomous), right lower leg, initial encounter; W57.XXXA Bitten or stung by nonvenomous insect and other nonvenomous arthropods, initial encounter; Y93.89 Activity, other specified; Y92.89 Other specified places as the place of occurrence of the external cause; Y99.8 Other external cause status

== ENCOUNTER 2020-01-17 18:59 | Emergency (ER) | payer MEDICAID ==
[~2020-01-17] VITALS: Ht 152.4 cm; Wt 67.6 kg
[2020-01-17 22:16] VITALS: BP 99/64
== END 2020-01-17 22:55 | disposition home or self-care (01) ==
LOC: ER 18:59
DX: S80.861A Insect bite (nonvenomous), right lower leg, initial encounter (principal); S40.261A Insect bite (nonvenomous) of right shoulder, initial encounter; Z79.899 Other long term (current) drug therapy; W57.XXXA Bitten or stung by nonvenomous insect and other nonvenomous arthropods, initial encounter; Y93.89 Activity, other specified; Y92.89 Other specified places as the place of occurrence of the external cause; Y99.8 Other external cause status

== ENCOUNTER 2020-04-04 02:18 | Emergency (ER) | payer MEDICAID ==
[~2020-04-04] VITALS: Ht 154.9 cm; Wt 68.0 kg
[2020-04-04 03:41] VITALS: BP 107/72
== END 2020-04-04 03:51 | disposition home or self-care (01) ==
LOC: ER 02:18
DX: S90.562A Insect bite (nonvenomous), left ankle, initial encounter (principal); S90.561A Insect bite (nonvenomous), right ankle, initial encounter; L29.9 Pruritus, unspecified; Z79.899 Other long term (current) drug therapy; W57.XXXA Bitten or stung by nonvenomous insect and other nonvenomous arthropods, initial encounter; Y93.89 Activity, other specified; Y92.89 Other specified places as the place of occurrence of the external cause; Y99.8 Other external cause status

== ENCOUNTER 2020-05-13 14:18 | Emergency (ER) | payer MEDICAID ==
[~2020-05-13] VITALS: Ht 157.5 cm; Wt 70.3 kg
[2020-05-13 15:13] LABS: Urine Bacteria FEW /hpf (None Seen); Urine Blood 2+ /uL (Negative); Urine Mucus FEW (None Seen); Urine Specific Gravity 1.015 (1.001-1.035); Urine WBC 20 /hpf (0 - 5)
[2020-05-13 17:11] VITALS: BP 115/63
== END 2020-05-13 17:18 | disposition home or self-care (01) ==
LOC: ER 14:18
DX: N93.8 Other specified abnormal uterine and vaginal bleeding (principal); N39.0 Urinary tract infection, site not specified; Z90.49 Acquired absence of other specified parts of digestive tract
CPT/HCPCS: 36415; 81001; 84702

== ENCOUNTER 2020-05-17 22:26 | Emergency (ER) | payer MEDICAID ==
[~2020-05-17] VITALS: Ht 157.5 cm; Wt 69.9 kg
[2020-05-17 23:09] LABS: Basophils # (auto) 0.1 10 ^3/uL (0-0.2); Basophils % (auto) 0.8 % (0.0-2.0); Eosinophils # (auto) 0.1 10 ^3/uL (0-0.8); Eosinophils % (auto) 1.4 % (0.0-7.0); Hematocrit 40.3 % (36.0-46.0); Hemoglobin 13.4 g/dL (12.2-16.2); Lymphocytes # (auto) 2.5 10 ^3/uL (0.4-5.4); Lymphocytes % (auto) 31.8 % (10.0-50.0); Mean Corpuscular Hemoglobin 29.4 pg (28.0-32.0); Mean Corpuscular Hgb Conc. 33.2 g/dL (32.0-36.0); Mean Corpuscular Volume 88.5 fL (80.0-100.0); Monocytes # (auto) 0.6 10 ^3/uL (0-1.3); Monocytes % (auto) 7.7 % (0.0-12.0); Neutrophils # (auto) 4.7 10 ^3/uL (1.6-8.6); Neutrophils % (auto) 58.3 % (37.0-80.0); Nucleated Red Blood Cells % 0.1 %; Platelet Count (auto) 235 10^3/uL (140-450); Red Blood Cells 4.55 10^6/uL (4.0-5.20); Red Cell Distribution Width 12.9 % (11.8-14.3)
[2020-05-17 23:10] LABS: Urine Bacteria FEW /hpf (None Seen); Urine Blood 2+ /uL (Negative); Urine Specific Gravity 1.005 (1.001-1.035); Urine WBC 2 /hpf (0 - 5)
[2020-05-17 23:17] LABS: Alcohol, Urine < 3.0 mg/dL (0-10); Amphetamine Screen, Urine NEGATIVE (NEGATIVE); Barbiturate Scree,Urine NEGATIVE (NEGATIVE); Benzodiazephine Screen, Urine NEGATIVE (NEGATIVE); Cannabinoid Screen, Urine NEGATIVE (NEGATIVE); Cocaine Screen, Urine NEGATIVE (NEGATIVE); Opiate Scree,Urine NEGATIVE (NEGATIVE); Phencyclidine Screen, Urine NEGATIVE (NEGATIVE)
[2020-05-17 23:25] LABS: Albumin 4.1 g/dL (3.4-5.0); BUN/Creatinine Ratio 15.1; Calcium 8.8 mg/dL (8.5-10.1); Potassium 4.1 mmol/L (3.5-5.1)
[2020-05-17 23:28] LABS: Bilirubin, Total 0.3 mg/dL (0.2-1.0); Total Protein 7.6 g/dL (6.4-8.2)
[2020-05-18 00:12] VITALS: BP 128/63
== END 2020-05-18 00:16 | disposition home or self-care (01) ==
LOC: ER 22:30
DX: N93.8 Other specified abnormal uterine and vaginal bleeding (principal); Z90.49 Acquired absence of other specified parts of digestive tract
CPT/HCPCS: 36415; 76856; 80053; 80307; 81001; 84702; 85025

== ENCOUNTER 2020-06-01 11:45 | Emergency (ER) | payer MEDICAID ==
[~2020-06-01] VITALS: Ht 157.5 cm; Wt 70.8 kg
[2020-06-01 12:10] VITALS: BP 119/77
[2020-06-01 14:56] LABS: Urine Bacteria FEW /hpf (None Seen); Urine Blood 1+ /uL (Negative); Urine Specific Gravity 1.006 (1.001-1.035); Urine WBC 2 /hpf (0 - 5)
[2020-06-01 17:39] LABS: Albumin 4.4 g/dL (3.4-5.0); Potassium 4.2 mmol/L (3.5-5.1)
[2020-06-01 17:44] LABS: BUN/Creatinine Ratio 15.2; Basophils # (auto) 0 10 ^3/uL (0-0.2); Basophils % (auto) 0.6 % (0.0-2.0); Bilirubin, Total 0.4 mg/dL (0.2-1.0); Eosinophils # (auto) 0.1 10 ^3/uL (0-0.8); Eosinophils % (auto) 0.8 % (0.0-7.0); Hematocrit 41.3 % (36.0-46.0); Hemoglobin 13.8 g/dL (12.2-16.2); Lymphocytes # (auto) 1.9 10 ^3/uL (0.4-5.4); Lymphocytes % (auto) 29.3 % (10.0-50.0); Mean Corpuscular Hemoglobin 29.8 pg (28.0-32.0); Mean Corpuscular Hgb Conc. 33.5 g/dL (32.0-36.0); Mean Corpuscular Volume 88.8 fL (80.0-100.0); Monocytes # (auto) 0.5 10 ^3/uL (0-1.3); Monocytes % (auto) 7.4 % (0.0-12.0); Neutrophils % (auto) 61.9 % (37.0-80.0); Platelet Count (auto) 255 10^3/uL (140-450); Red Blood Cells 4.65 10^6/uL (4.0-5.20); Red Cell Distribution Width 12.7 % (11.8-14.3); Total Protein 7.5 g/dL (6.4-8.2); White Blood Cell 6.5 10^3/uL (4.4-10.8)
== END 2020-06-01 19:39 | disposition home or self-care (01) ==
LOC: ER 11:45
DX: N93.8 Other specified abnormal uterine and vaginal bleeding (principal); R25.2 Cramp and spasm
CPT/HCPCS: 36415; 80053; 81001; 81025; 84702; 85025

== ENCOUNTER 2021-02-20 23:05 | Emergency (ER) | payer MEDICAID ==
[~2021-02-20] VITALS: Ht 157.5 cm; Wt 69.9 kg
[2021-02-20 23:06] VITALS: BP 103/73
[2021-02-20 23:32] LABS: Basophils # (auto) 0.1 10 ^3/uL (0-0.2); Basophils % (auto) 0.9 % (0.0-2.0); Eosinophils # (auto) 0.1 10 ^3/uL (0-0.8); Eosinophils % (auto) 1.2 % (0.0-7.0); Hematocrit 38.1 % (36.0-46.0); Hemoglobin 13.2 g/dL (12.2-16.2); Lymphocytes # (auto) 2.9 10 ^3/uL (0.4-5.4); Lymphocytes % (auto) 29.8 % (10.0-50.0); Mean Corpuscular Hemoglobin 30.2 pg (28.0-32.0); Mean Corpuscular Hgb Conc. 34.7 g/dL (32.0-36.0); Monocytes # (auto) 0.7 10 ^3/uL (0-1.3); Monocytes % (auto) 6.9 % (0.0-12.0); Neutrophils % (auto) 61.2 % (37.0-80.0); Red Blood Cells 4.37 10^6/uL (4.0-5.20); Red Cell Distribution Width 13.2 % (11.8-14.3); White Blood Cell 9.8 10^3/uL (4.4-10.8)
[2021-02-20 23:46] LABS: Urine Bacteria FEW /hpf (None Seen); Urine Blood 1+ /uL (Negative); Urine Specific Gravity 1.021 (1.001-1.035); Urine WBC 10 /hpf (0 - 5)
[2021-02-20 23:53] LABS: Albumin 3.9 g/dL (3.4-5.0); Calcium 8.8 mg/dL (8.5-10.1); Potassium 4.1 mmol/L (3.5-5.1)
[2021-02-20 23:55] LABS: BUN/Creatinine Ratio 21.1
[2021-02-20 23:57] LABS: Bilirubin, Total 0.2 mg/dL (0.2-1.0); Total Protein 7.5 g/dL (6.4-8.2)
== END 2021-02-21 06:16 | disposition home or self-care (01) ==
LOC: ER 23:05
DX: N93.9 Abnormal uterine and vaginal bleeding, unspecified (principal); Z90.49 Acquired absence of other specified parts of digestive tract; Z79.2 Long term (current) use of antibiotics; Z79.899 Other long term (current) drug therapy
CPT/HCPCS: 36415; 80053; 81001; 84702; 85025

== ENCOUNTER 2022-01-22 19:25 | Emergency (ER) | payer MEDICAID ==
[~2022-01-22] VITALS: Ht 154.9 cm; Wt 73.6 kg
[2022-01-22 19:55] VITALS: BP 114/54
[2022-01-22 20:33] LABS: Urine Bacteria FEW /hpf (None Seen); Urine Blood 1+ /uL (Negative); Urine Hyaline Cast FEW /lpf (0 - 2); Urine Specific Gravity 1.013 (1.001-1.035); Urine WBC 2 /hpf (0 - 5)
[2022-01-22 21:39] LABS: Basophils # (auto) 0 10 ^3/uL (0-0.2); Basophils % (auto) 0.6 % (0.0-2.0); Eosinophils # (auto) 0.1 10 ^3/uL (0-0.8); Eosinophils % (auto) 1.3 % (0.0-7.0); Hematocrit 38.3 % (36.0-46.0); Hemoglobin 12.8 g/dL (12.2-16.2); Lymphocytes % (auto) 30.5 % (10.0-50.0); Mean Corpuscular Hemoglobin 29.2 pg (28.0-32.0); Mean Corpuscular Hgb Conc. 33.5 g/dL (32.0-36.0); Mean Corpuscular Volume 87.3 fL (80.0-100.0); Monocytes # (auto) 0.4 10 ^3/uL (0-1.3); Monocytes % (auto) 6.5 % (0.0-12.0); Neutrophils % (auto) 61.1 % (37.0-80.0); Red Blood Cells 4.39 10^6/uL (4.0-5.20); Red Cell Distribution Width 13.4 % (11.8-14.3); White Blood Cell 6.5 10^3/uL (4.4-10.8)
[2022-01-22 21:59] LABS: Albumin 3.9 g/dL (3.4-5.0); BUN/Creatinine Ratio 11.4; Calcium 8.7 mg/dL (8.5-10.1); Magnesium 2.1 mg/dL (1.6-2.6); Potassium 4.1 mmol/L (3.5-5.1)
[2022-01-22 22:01] LABS: Bilirubin, Total 0.2 mg/dL (0.2-1.0); Total Protein 7.1 g/dL (6.4-8.2)
[2022-01-23] MEDS ORDERED: HYDR50CA PO (06:45)
== END 2022-01-23 06:55 | disposition home or self-care (01) ==
LOC: ER 19:25
DX: R07.89 Other chest pain (principal); F41.9 Anxiety disorder, unspecified; Z90.49 Acquired absence of other specified parts of digestive tract; Z79.2 Long term (current) use of antibiotics; Z79.899 Other long term (current) drug therapy
CPT/HCPCS: 36415; 71045; 80053; 81001; 81025; 83735; 84443; 84484; 85025; 93005